=== PATIENT | female | born 1935 | race Two or more races ===

== ENCOUNTER 2024-08-23 04:56 | Emergency (ER) | payer OTHER ==
[~2024-08-23] VITALS: Ht 160 cm; Wt 64.9 kg
[~2024-08-23 04:56] MED LIST: ATENOLOL50 MG PO; DOXAZOSIN MESYLA2 MG PO; LOTREL 10-20 MG1 CAP PO; MICARDIS80 MG PO
[2024-08-23] MEDS ORDERED: LOSARTAN POTAS100 MG PO (05:10)
[2024-08-23] MEDS ORDERED: EPINEPHRINE HCL/PF 1 MG/ML AMPUL SUBCUTANEO STA (05:40)
[2024-08-23] MEDS ORDERED: METHYLPREDNISOLONE SOD SUCC 125 MG VIAL IV STA (05:42)
[2024-08-23] MEDS ORDERED: FAMOtidine 10 MG/ML (4ML VIAL) IV PUSH STA (05:43)
[2024-08-23] MEDS ORDERED: DIPHENHYDRAMINE HCL 50 MG/ML VIAL 1ML IV STA (05:43)
== END 2024-08-23 07:24 | disposition home or self-care (01) ==
LOC: ER 04:56
DX: R21 Rash and other nonspecific skin eruption (principal); T78.3XXA Angioneurotic edema, initial encounter
CPT/HCPCS: 96365; 99282; J1200; J3490 ×2